=== PATIENT | male | born 1960 | race Caucasian/White ===

== ENCOUNTER 2017-03-26 09:28 | Day surgery (SDC) | payer MEDICARE ==
[~2017-03-26] VITALS: Ht 185.4 cm; Wt 108.1 kg
[~2017-03-26 09:28] MED LIST: GLUCOPHAGE500 MG PO; JARDIANCE10 MG PO; LOPID600 MG PO; NEURONTIN100 MG PO
[2017-03-26 09:45] VITALS: BP 129/89
[2017-03-26 10:24] LABS: POINT-OF-CARE METER ID UU14174212
[2017-03-26 13:16] LABS: POINT-OF-CARE METER ID UU13113675
[2017-03-26] MEDS ORDERED: COLACE100 MG PO (13:37)
[2017-03-26] MEDS ORDERED: OXYCONTIN15 MG PO (13:37)
[2017-03-26] MEDS ORDERED: PERCOCET 5/31 TABLET PO (13:37)
[2017-03-26 14:15] VITALS: BP 166/78
[2017-03-26 15:15] VITALS: BP 147/86
== END 2017-03-26 15:30 | disposition home or self-care (01) ==
LOC: SDC 09:28
PROVIDERS: Surgery
PROC: 0WUF4JZ Supplement Abdominal Wall with Synthetic Substitute, Percutaneous Endoscopic Approach (ICD-10-PCS; principal; 2017-03-26)
DX: K42.9 Umbilical hernia without obstruction or gangrene (principal); E11.9 Type 2 diabetes mellitus without complications; M62.08 Separation of muscle (nontraumatic), other site; J45.909 Unspecified asthma, uncomplicated; Z79.84 Long term (current) use of oral hypoglycemic drugs; Z87.891 Personal history of nicotine dependence
CPT/HCPCS: 82948; C1781; J0131; J0330; J0690; J1100; J1170; J1885; J2250; J2405; J2710; J3010

== ENCOUNTER → 2017-11-17 | Outpatient (CLI) | payer MEDICARE ==
[~2017-11-17] MED LIST changes: +ALLERGY MED; +COLACE100 MG PO; +DIABETIC MED PO; -JARDIANCE10 MG PO; +OXYCONTIN15 MG PO; +PERCOCET 5/31 TABLET PO
== END | disposition home or self-care (01) ==
LOC: CDC 10:24
DX: Z01.810 Encounter for preprocedural cardiovascular examination (principal); M62.08 Separation of muscle (nontraumatic), other site
CPT/HCPCS: 93000

== ENCOUNTER 2017-11-23 10:40 | Day surgery (SDC) | payer MEDICARE ==
[~2017-11-23] VITALS: Ht 185.4 cm; Wt 108.8 kg
[2017-11-23 10:56] VITALS: BP 155/80
[2017-11-23] MEDS ORDERED: FARXIGA10 MG PO (11:05)
[2017-11-23 11:28] VITALS: BP 155/80
[2017-11-23] MEDS ORDERED: COLACE100 MG PO (16:59)
[2017-11-23] MEDS ORDERED: PERCOCET 5/31 TABLET PO (16:59)
[2017-11-23 18:28] VITALS: BP 145/86
[2017-11-23 23:48] VITALS: BP 141/82
[2017-11-24 06:20] LABS: HEMATOCRIT 43.7 % (38.0-50.0); HEMOGLOBIN 14.5 G/DL (12.5-16.6); MCH 30.1 PG (29.0-34.0); MCHC 33.2 G/DL (30.0-36.0); MCV 90.9 FL (86-99); PLATELET COUNT 169 K/uL (156-360); RBC DIS.WIDTH-CV 13.6 % (11.8-14.6); RBC DIS.WIDTH-SD 45.7 % (39-53); RED BLOOD COUNT 4.81 M/uL (4.00-5.50); WHITE BLOOD COUNT 11.3 K/uL (4.1-10.2)
[2017-11-24 06:47] LABS: ALKALINE PHOSPHATASE 59 IU/L (3-129); ALT (GPT) 10 IU/L (3-49); AST (GOT) 13 IU/L (2-34); CHLORIDE 104 MEQ/L (99-109); CREATININE 0.9 MG/DL (0.6-1.3); GFR ESTIMATE (CALCULATED) > 59 mL/min/ (58.99-99999); GLUCOSE 168 mg/dL (70-99); SODIUM 137 MEQ/L (136-147); TOTAL PROTEIN 6.9 G/DL (6.4-8.3); UREA NITROGEN (BUN) 16 mg/dL (9-23)
[2017-11-24 06:50] LABS: TOTAL BILIRUBIN 0.8 MG/DL (0.0-1.0)
[2017-11-24 07:28] VITALS: BP 127/76
[2017-11-24 11:50] VITALS: BP 146/81
[2017-11-24 16:05] VITALS: BP 129/79
[2017-11-24 20:32] VITALS: BP 122/72
[2017-11-24 23:36] VITALS: BP 144/78
[2017-11-25 03:19] VITALS: BP 142/80
[2017-11-25 07:43] VITALS: BP 168/102
[2017-11-25 12:00] VITALS: BP 133/81
[2017-11-25 16:12] VITALS: BP 142/90
[2017-11-25 19:39] VITALS: BP 144/79
[2017-11-25 23:57] VITALS: BP 135/80
[2017-11-26 03:12] VITALS: BP 138/76
[2017-11-26 06:21] LABS: HEMATOCRIT 42.8 % (38.0-50.0); HEMOGLOBIN 14.4 G/DL (12.5-16.6); MCH 30.4 PG (29.0-34.0); MCHC 33.6 G/DL (30.0-36.0); MCV 90.3 FL (86-99); PLATELET COUNT 177 K/uL (156-360); RBC DIS.WIDTH-CV 13.4 % (11.8-14.6); RBC DIS.WIDTH-SD 44.2 % (39-53); RED BLOOD COUNT 4.74 M/uL (4.00-5.50); WHITE BLOOD COUNT 9.9 K/uL (4.1-10.2)
[2017-11-26 06:46] LABS: CHLORIDE 102 MEQ/L (99-109); CREATININE 0.7 MG/DL (0.6-1.3); GFR ESTIMATE (CALCULATED) > 59 mL/min/ (58.99-99999); GLUCOSE 176 mg/dL (70-99); POTASSIUM 4.3 MEQ/L (3.7-5.4); SODIUM 139 MEQ/L (136-147); UREA NITROGEN (BUN) 13 mg/dL (9-23)
[2017-11-26 07:53] VITALS: BP 163/94
== END 2017-11-26 14:09 | disposition home or self-care (01) ==
LOC: SDC → 2EAST 16:57 → ENRESERV 17:00 → SDC 11-24 12:28 → 2EAST 11-26 14:09
PROVIDERS: Surgery
DX: K43.2 Incisional hernia without obstruction or gangrene (principal); M62.08 Separation of muscle (nontraumatic), other site; K66.0 Peritoneal adhesions (postprocedural) (postinfection); Z99.81 Dependence on supplemental oxygen; E11.9 Type 2 diabetes mellitus without complications; E66.9 Obesity, unspecified; Z68.31 Body mass index [BMI] 31.0-31.9, adult; Z79.84 Long term (current) use of oral hypoglycemic drugs; Z80.0 Family history of malignant neoplasm of digestive organs; Z87.891 Personal history of nicotine dependence
CPT/HCPCS: 80048; 80053; 82948; 85027; 88300; 88302; 94799; C1781; G0378; J0131; J0330; J0690; J1100; J1170; J1650; J1815; J2001; J2250; J2405; J2710; J3010; J7120; J7643